=== PATIENT | female | born 1980 | race Caucasian/White ===

== ENCOUNTER 2023-12-19 19:50 | Emergency (ER) | payer SELFPAY ==
[2023-12-19 20:13] VITALS: TEMP 97.3; O2SAT 100
--- NOTE | 2023-12-19 20:17 | ERPHSYRPT ---
- History of Present Illness Time Seen by Provider: 12/19/23 20:17 Source: patient, family Exam Limitations: no limitations Patient Subjective Stated Complaint: c/o of right first toe injury Triage Nursing Assessment: patient brought to ED by daughter with c/o of right big toe injury. Patient states thats she kicked her dog's stairs by the bed and her toe bent backwards and is afraid she broke it. swelling, bruising, and bleeding present. Patient rates pain 6/10. slightly hypertensive, pulse normal, skin w/n/d, gait steady, patient doesn't appear to be in any distress at this time. Physician History: This is a 43-year-old white female patient who arrives by private vehicle accompanied by family secondary to tenderness right foot first digit. Injury occurred at home earlier this afternoon. At that time, the patient accidentally kicked the dog stair that was by the bed the toe bent backwards. She began having swelling and bruising to the area she rates the pain a 6 out of 10. It is described as throbbing. Method of Injury: direct blow Occurred: this afternoon Quality: constant, throbbing Severity of Pain-Max: moderate Severity of Pain-Current: moderate Lower Extremities Pain: 1st toe: right Modifying Factors: Improves With: movement Associated Symptoms: other (Can bear weight but hurts to do so) Allergies/Adverse Reactions: No Known Drug Allergies Allergy (Verified 12/19/23 20:13) Hx Tetanus, Diphtheria Vaccination/Date Given: Yes (2015) Hx Influenza Vaccination/Date Given: No Hx Pneumococcal Vaccination/Date Given: No Travel Risk - International Travel Have you traveled outside of the country in past 3 weeks: No - Emerging Infectious Disease Are you exhibiting symptoms associated with any current EIDs: No - Review of Systems Constitutional: No Symptoms Eyes: No Symptoms Ears, Nose, & Throat: No Symptoms Respiratory: No Symptoms Cardiac: No Symptoms Abdominal/Gastrointestinal: No Symptoms Genitourinary Symptoms: No Symptoms Musculoskeletal: Injury (Right foot first digit) Skin: No Symptoms Neurological: No Symptoms Psychological: No Symptoms Endocrine: No Symptoms Hematologic/Lymphatic: No Symptoms Immunological/Allergic: No Symptoms All Other Systems: Reviewed and Negative - Past Medical History Pertinent Past Medical History: Yes Neurological History: No Pertinent History ENT History: No Pertinent History Cardiac History: No Pertinent History Respiratory History: No Pertinent History Endocrine Medical History: No Pertinent History Musculoskeletal History: No Pertinent History GI Medical History: No Pertinent History History: No Pertinent History Psycho-Social History: No Pertinent History Female Reproductive Disorders: No Pertinent History - Past Surgical History Past Surgical History: Yes Neuro Surgical History: No Pertinent History Cardiac: No Pertinent History Respiratory: No Pertinent History Gastrointestinal: No Pertinent History Genitourinary: No Pertinent History Musculoskeletal: No Pertinent History Female Surgical History: Tubal Ligation - Female History Hx Last Menstrual Period: a month ago Hx Now: No - Social History Smoking Status: Current every day smoker Exposure to second hand smoke: Yes Drug Use: none - Social Determinants of Health Will the patient participate in the screening: Yes Do you worry about a steady place to live?: No Do you have any problems with any of the following?: No known problems In the past 12 months,have you had to go without utilities?: No Transportation Issues: No Has anyone in your support network made you feel unsafe?: No Have you or anyone in your house had to go without enough: No - Nursing Vital Signs Nursing Vital Signs: Initial Vital Signs Temperature 97.3 F 12/19/23 19:57 Pulse Rate 91 H 12/19/23 19:57 Blood Pressure 143/70 12/19/23 19:57 O2 Sat by Pulse Oximetry 100 12/19/23 19:57 Pain Scale Pain Intensity 6 - Physical Exam General Appearance: no apparent distress, alert, anxiety Eyes, Ears, Nose, Throat Exam: normal ENT inspection, moist mucous membranes Neck Exam: normal inspection, non-tender, supple, full range of motion Cardiovascular/Respiratory Exam: chest non-tender, no respiratory distress Gastrointestinal/Abdominal Exam: non-tender Back Exam: normal inspection, normal range of motion, No CVA tenderness, No vertebral tenderness Hips Exam: bilateral: non-tender, normal inspection, normal range of motion, no evidence of injury Legs Exam: bilateral leg: non-tender, normal inspection, normal range of motion, no evidence of injury Knees Exam: bilateral knee: non-tender, normal inspection, normal range of motion, no evidence of injury Ankle Exam: bilateral ankle: non-tender, normal inspection, normal range of motion, no evidence of injury Foot Exam: right foot: bone tenderness (First digit), ecchymosis (First digit), soft tissue tenderness (First digit), swelling (First digit), left foot: non- tender, normal inspection, normal range of motion, no evidence of injury Neuro/Tendon Exam: normal sensation, normal motor functions, normal tendon functions, responds to pain, no evidence tendon injury Mental Status Exam: alert, oriented x 3, cooperative Skin Exam: normal color, warm, dry SpO2 Interpretation: normal SpO2: 100 O2 Delivery: Room Air - Course Nursing assessment & vital signs reviewed: Yes Ordered Tests: Active Orders 24 hr Category Date Time Status FOOT (MINIMUM 3 VIEWS) Stat Exams 12/19/23 20:00 Taken Medication Summary Discontinued Medications Generic Name Dose Route Start Last Admin Trade Name Favian PRN Reason Stop Dose Admin Ibuprofen 600 mg 12/19/23 20:44 12/19/23 20:49 Ibuprofen 600 Mg Tablet PO 12/19/23 20:45 600 mg STAT ONE Administration Ibuprofen Confirm 12/19/23 20:48 Ibuprofen 600 Mg Tablet Administered 12/19/23 20:49 Dose 600 mg .ROUTE .STK-MED ONE Oxycodone/Acetaminophen 1 tab 12/19/23 20:45 12/19/23 20:49 Oxycodone Hcl/Apap 5 Mg/325 Mg Tablet PO 12/19/23 20:46 1 tab STAT STA Administration Oxycodone/Acetaminophen 2 tab 12/19/23 20:45 12/19/23 20:49 Oxycodone Hcl/Apap 5 Mg/325 Mg Tablet PO 12/19/23 20:46 2 tab SENT HOME W/ PATIENT STA Administration Oxycodone/Acetaminophen Confirm 12/19/23 20:47 Oxycodone Hcl/Apap 5 Mg/325 Mg Tablet Administered 12/19/23 20:48 Dose 3 tab .ROUTE .STK-MED ONE - Progress Progress: improved, pain not gone completely Progress Note: 12/19/23 20:49 My medical decision making and the assignment of low complexity is based on review of the patient's past medical history, review the patient's medication list, reviewed patient drug allergy list, history present illness and physical f indings on examination. The workup in this patient includes x-ray of the patient's right foot. Differential diagnosis includes but is not limited to fracture and/or dislocation of osseous structures, contusions I interpreted the preliminary report of the patient's right foot x-ray. I see dorsal aspect right foot first digit distal phalanx nondisplaced fracture Counseled pt/family regarding: diagnosis, need for follow-up, rad results Medical Desision Making - Independent Historian Additional History obtained from: Family - Diagnostic Testing Diagnostic test were ordered, analyzed, and reviewed by me: Yes Radiological Interpretation: Interpreted by me - Risk of complications The pt has a mod risk of morbidity or mortality based on: Need for prescription drug management - Departure Departure Disposition: Home Clinical Impression: Fracture of distal phalanx of great toe Condition: Stable Critical Care Time: No [facility] - Follow up/PCP as directed Additional Instructions: Ice pack to area 3-4 times a day for the next 2 to 3 days. Add ibuprofen to the drug regimen to control pain. Call podiatry, Dr. Faust's office tomorrow, 12/20/2023, to make arrangements for follow-up appointment for further evaluation and management. Prescriptions: Oxycodone HCl/Acetaminophen [Percocet 5-325 mg Tablet] 1 each PO Q8H PRN PRN #6 tablet MDD 3 PRN Reason: Moderate To Severe Pain
[2023-12-19] MEDS ORDERED: PERCOCET TABLET 5/325MG ONE (20:47)
[2023-12-19] MEDS ORDERED: MOTRIN 600 MG ONE (20:48)
[2023-12-19] MEDS: PERCOCET TABLET 5/325MG PO STA ×2 (20:49)
[2023-12-19] MEDS: MOTRIN 600 MG PO ONE (20:49)
[2023-12-19 21:02] VITALS: BP 132/85; PULSE 84; RESP 18
--- NOTE | 2023-12-20 08:46 | XRAY ---
Indication: First toe injury and swelling. Comparison: None 3 nonweightbearing views right foot demonstrates cortical fracture shaft distal 1st phalanx with soft tissue swelling. No other bony, articular, or soft tissue abnormalities.
== END 2023-12-19 21:02 | disposition home or self-care (01) ==
LOC: ED 19:50
DX: S92.421A Displaced fracture of distal phalanx of right great toe, initial encounter for closed fracture (principal); W22.8XXA Striking against or struck by other objects, initial encounter
CPT/HCPCS: 73630; 99283; A9270-GY